=== PATIENT | female | born 1990 | race Caucasian/White ===

== ENCOUNTER 2017-07-17 09:37 | Emergency (ER) | payer MEDICAID ==
[2017-07-17 10:05] LABS: BASOPHILS 0 % (0-2); EOSINOPHILS 0.4 % (0-7); HEMATOCRIT 31.4 % (36.0-48.0); HEMOGLOBIN 10.6 g/dL (12-16); IMMATURE GRANULOCYTES 0.2 % (0-5); LYMPHOCYTES 35.4 % (15-50); MCH 30.7 pg (26.0-34.0); MCHC 33.8 g/dL (31.0-37.0); MEAN PLATELET VOLUME 9.8 fL (7.4-10.4); MONOCYTES 2.4 % (2-11); NEUTROPHILS 61.6 % (40-80); PLATELET COUNT 172 10x3/uL (130-400); RBC 3.45 10x6/uL (4.00-5.40); RDW 13.4 % (11.5-14.5); WBC 4.5 10x3/uL (4.8-10.8)
[2017-07-17 10:16] LABS: KETONE - SERUM NEGATIVE (NEGATIVE)
[2017-07-17 10:19] LABS: ALBUMIN 2.1 g/dL (3.4-5.0); ALKALINE PHOSPHATASE 81 U/L (46-116); ALT (SGPT) 163 U/L (10-68); CALC OSMOLALITY 283 mosm/kg (275-300); CALCIUM 7.2 mg/dL (8.5-10.1); CHLORIDE - SERUM 106 mmol/L (98-107); CREATININE - SERUM 0.6 mg/dL (0.6-1.3); GLUCOSE 268 mg/dL (74-106); LIPASE 601 U/L (73-393); POTASSIUM - SERUM 3.4 mmol/L (3.5-5.1); SODIUM 138 mmol/L (136-145); UREA NITROGEN 9 mg/dL (7-18); eGFR NON AFRICAN AMERICAN > 90 mL/min (90-120)
[2017-07-17 12:04] LABS: HCG SERUM NEGATIVE (NEGATIVE)
== END 2017-07-17 14:20 ==
LOC: D.ER 09:37
PROVIDERS: Family Medicine
DX: E10.65 Type 1 diabetes mellitus with hyperglycemia (principal); Z79.4 Long term (current) use of insulin; R79.89 Other specified abnormal findings of blood chemistry; K59.00 Constipation, unspecified; R18.8 Other ascites; D64.9 Anemia, unspecified

== ENCOUNTER 2017-07-19 16:16 | Emergency (ER) | payer MEDICAID ==
[2017-07-19 16:55] LABS: BASOPHILS 0.2 % (0-2); EOSINOPHILS 0.7 % (0-7); HEMATOCRIT 39.4 % (36.0-48.0); IMMATURE GRANULOCYTES 0.7 % (0-5); LYMPHOCYTES 28.9 % (15-50); MCH 31.6 pg (26.0-34.0); MCV 95.6 fL (80.0-100.0); MEAN PLATELET VOLUME 10.6 fL (7.4-10.4); MONOCYTES 6.9 % (2-11); NEUTROPHILS 62.6 % (40-80); RBC 4.12 10x6/uL (4.00-5.40); RDW 14.3 % (11.5-14.5); WBC 5.4 10x3/uL (4.8-10.8)
[2017-07-19 17:03] LABS: PLATELET COUNT 235 10x3/uL (130-400)
[2017-07-19 17:12] LABS: APPEARANCE CLEAR (CLEAR); BILIRUBIN NEGATIVE (NEGATIVE); COLOR YELLOW (YELLOW); GLUCOSE 1000 mg/dL (NEGATIVE); KETONE NEGATIVE (NEGATIVE); NITRITE NEGATIVE (NEGATIVE); PROTEIN NEGATIVE (NEGATIVE); UROBILINOGEN NORMAL (NORMAL)
[2017-07-19 17:21] LABS: ALBUMIN 2.5 g/dL (3.4-5.0); ALKALINE PHOSPHATASE 113 U/L (46-116); ALT (SGPT) 380 U/L (10-68); AMYLASE - SERUM 101 U/L (25-115); BILIRUBIN - TOTAL 0.14 mg/dL (0.2-1.3); CALCIUM 8.3 mg/dL (8.5-10.1); CARBON DIOXIDE 21.7 mmol/L (21.0-32.0); CHLORIDE - SERUM 94 mmol/L (98-107); CREATININE - SERUM 0.8 mg/dL (0.6-1.3); LIPASE 559 U/L (73-393); MAGNESIUM - SERUM 1.9 mg/dL (1.8-2.4); POTASSIUM - SERUM 5.4 mmol/L (3.5-5.1); PROTEIN - SERUM 5.9 g/dL (6.4-8.2); SODIUM 128 mmol/L (136-145); UREA NITROGEN 12 mg/dL (7-18); eGFR NON AFRICAN AMERICAN > 90 mL/min (90-120)
[2017-07-19 17:22] LABS: CALC OSMOLALITY 290 mosm/kg (275-300)
[2017-07-19 17:24] LABS: GLUCOSE 703 mg/dL (74-106)
[2017-07-19 17:32] LABS: UDS - AMPHET NEGATIVE QUAL (NEGATIVE); UDS - BARB NEGATIVE QUAL (NEGATIVE); UDS - BENZO NEGATIVE QUAL (NEGATIVE); UDS - COCAINE NEGATIVE QUAL (NEGATIVE); UDS - OPIATE NEGATIVE QUAL (NEGATIVE); UDS - PCP NEGATIVE QUAL (NEGATIVE); UDS - THC NEGATIVE QUAL (NEGATIVE)
[2017-07-19 17:35] LABS: INR 0.74 (0.85-1.17); PROTIME 10.1 SECONDS (11.6-15.0)
[2017-07-19 17:45] LABS: HCG SERUM NEGATIVE (NEGATIVE)
== END 2017-07-19 22:03 | disposition home or self-care (01) ==
LOC: D.ER 16:16
PROVIDERS: Emergency Medicine; Nurse Practitioner Family
DX: E10.65 Type 1 diabetes mellitus with hyperglycemia (principal); Z79.4 Long term (current) use of insulin; R79.89 Other specified abnormal findings of blood chemistry; K76.9 Liver disease, unspecified; R74.8 Abnormal levels of other serum enzymes; K59.00 Constipation, unspecified

== ENCOUNTER 2017-07-20 08:14 | Emergency (ER) | payer MEDICAID ==
[2017-07-20 09:06] LABS: KETONE - SERUM NEGATIVE (NEGATIVE)
[2017-07-20 09:18] LABS: GLUCOSE 633 mg/dL (74-106)
[2017-07-20 10:32] LABS: AMYLASE - SERUM 71 U/L (25-115); LIPASE 502 U/L (73-393)
== END 2017-07-20 12:17 | disposition home or self-care (01) ==
LOC: D.ER 08:14
PROVIDERS: Emergency Medicine
DX: E10.65 Type 1 diabetes mellitus with hyperglycemia (principal); Z79.4 Long term (current) use of insulin; R79.89 Other specified abnormal findings of blood chemistry; K59.00 Constipation, unspecified; R18.8 Other ascites; D64.9 Anemia, unspecified; K76.9 Liver disease, unspecified